=== PATIENT | female | born 1945 | race Caucasian/White ===

== ENCOUNTER 2023-04-04 03:29 | Day surgery (SDC) | payer OTHER ==
[2023-04-03 12:12] VITALS: BMI 22.9
[2023-04-04] MEDS ORDERED: MIDAZOLAM HCL 2 MG/2 ML SINGLE DOSE VIAL ONE (08:38)
[2023-04-04] MEDS ORDERED: LIDOCAINE HCL/PF 2% SDV 5ML VIAL ONE (08:38)
[2023-04-04] MEDS ORDERED: METOCLOPRAMIDE HCL INJECTION 10 MG/2 ML VIAL ONE (08:38)
[2023-04-04] MEDS ORDERED: ONDANSETRON 4 MG/2 ML VIAL ONE (08:38)
[2023-04-04] MEDS ORDERED: DEXAMETHASONE SOD PHOSPHATE 4 MG/1 ML VIAL ONE (08:38)
[2023-04-04] MEDS ORDERED: SODIUM CHLORIDE 0.9% P/F 10 ML VIAL IJ ONE (08:38)
[2023-04-04] MEDS ORDERED: FENTANYL CITRATE/PF 50 MCG/ML VIAL ONE (08:51)
[2023-04-04] MEDS ORDERED: oxyCODONE HCL 5 MG TABLET PO PRN (09:57)
[2023-04-04] MEDS ORDERED: ONDANSETRON 4 MG/2 ML VIAL IVPUSH PRN (09:57)
[2023-04-04] MEDS ORDERED: LACTATED RINGERS SOLUTION 1,000 ML IV SCH (10:00)
[2023-04-04] MEDS ORDERED: OFLOXACIN 0.3% OPHTHALMIC SOLUTION 5 ML BOTTLE ONE (10:12)
[2023-04-04] MEDS ORDERED: OFLOXACIN 0.3% OPHTHALMIC SOLUTION 5 ML BOTTLE AD ONE (10:40)
[2023-04-04] MEDS ORDERED: PROPOFOL 20 ML ONE (10:40)
[2023-04-04 13:18] VITALS: BP 104/60; PULSE 80; RESP 18; TEMP 97.4
== END 2023-04-04 12:50 | disposition home or self-care (01) ==
LOC: JASU-SURG 03:29 → EDBD 09:00 → JASU-SURG 12:50
PROVIDERS: ATTEND Otolaryngology
PROC: 09Q87ZZ Repair Left Tympanic Membrane, Via Natural or Artificial Opening (ICD-10-PCS; 2023-04-04)
PROC: 09C47ZZ Extirpation of Matter from Left External Auditory Canal, Via Natural or Artificial Opening (ICD-10-PCS; 2023-04-04)
PROC: 099570Z Drainage of Right Middle Ear with Drainage Device, Via Natural or Artificial Opening (ICD-10-PCS; principal; 2023-04-04 09:00)
DX: H65.21 Chronic serous otitis media, right ear (principal); H72.92 Unspecified perforation of tympanic membrane, left ear; H61.22 Impacted cerumen, left ear; H90.6 Mixed conductive and sensorineural hearing loss, bilateral
CPT/HCPCS: 94760